=== PATIENT | male | born 1960 | race African-American/Black ===

== ENCOUNTER → 2016-11-03 | Outpatient (CLI) | payer OTHER ==
[~2016-11-03] VITALS: Ht 185.4 cm; Wt 133.8 kg
[~2016-11-03] MED LIST: B COMPLETE1 EAC1 PO; BP MED; CENTRUM SILVER1 EAC2 PO; COZAAR 25 MG TA25 M1 PO; GABAPENTIN 100100 MG PO; INDAPAMIDE2.5 MG PO; NORCO 10-325 T1 EACH PO; NORVASC10 MG PO; OMEPRAZOLE 20 M20 M1 PO; PERCOCET PO; ZOFRAN ODT4 MG DISSOLVE
--- NOTE | ~2016-11-03 | S ---
[facility] [place] [address] SURGICAL PATH RPT PROCEDURE Name: SP LEW Room #: REG CL M..#: [id number] Admission: 11/03/16 Date of : 58 Discharge: Report #: [id number] Path Case #: [id number] PATHOLOGY REPORT COLLECTION DATE: 11/03/2016 RECEIVED DATE: 11/03/2016 SUBMITTING PHYS: Dr. Rodrigo Casanova OTHER PHYS: SONJA Casiano SPECIMEN(S) RECEIVED: A.Polyp hepatic flexure B.Polyp prox ascending C.Polyp 70 cm D.Rectal polyp * * * * * * * * * * * * FINAL DIAGNOSIS: A. Polyp, hepatic flexure polyp, endoscopic biopsy: - Tubular adenoma. - Negative for high grade dysplasia. B. Polyp, proximal ascending, endoscopic biopsy: - Tubular adenoma. - Negative for high grade dysplasia. C. Polyp, 70 cm polyp, endoscopic biopsy: - Tubular adenoma admixed with hyperplastic changes. - Negative for high grade dysplasia. D. Polyp, rectal polyp, endoscopic biopsy: - Hyperplastic polyp. - Negative for dysplasia. (IUV:csd; d/t: 11/04/2016) PATHOLOGIST: Marya Campoverde M.D. REPORT ELECTRONICALLY SIGNED BY: Marya Campoverde M.D. DATE/TIME: 11/04/2016 14:32 * * * * * * * * * * * * GROSS PATHOLOGY: A. Received in formalin labeled "Sp Lew, hepatic flexure polyp," is a segment of barraaz soft tissue measuring 0.4 cm in maximum dimension. The specimen is submitted entirely in cassette A1. B. Received in formalin labeled "Sp Lew, polyp proximal ascending," is a segment of barraza soft tissue measuring 1.1 cm in maximum dimension. The specimen is submitted entirely in cassette B1. C. Received in formalin labeled "Sp Lew, 70 cm polyp," is a segment of barraza soft tissue measuring 0.5 cm in maximum dimension. The specimen is submitted entirely in cassette C1. [address] [address] SURGICAL PATH RPT PROCEDURE Name: SP LEW Room #: REG [facility].#: [id number] Admission: 11/03/16 Date of : 58 Discharge: Report #: [id number] Path Case #: [id number] D. Received in formalin labeled "Sp Lew, rectal polyp," is a segment of barraza soft tissue measuring 0.7 cm in maximum dimension. The specimen is submitted entirely in cassette D1. (CAA; 11/03/2016) CLINICAL HISTORY: Screening, history of polyps, colon polyps, diverticulosis INITIAL CPT CODE(S): A; 38631 B; 61914 C; 06632 D; 38661 Professional services performed by [facility] at [address] , [place] [address] Technical services performed by [facility] at [address] [place] [address], [address], [place] [address]. [facility] [address] [place], [place] [id number] PHONE: [phone] DIRECTOR: Wilber Horowitz M.D. * * * END OF REPORT * * *
--- NOTE | ~2016-11-03 | P ---
[facility] [place] [address] PROCEDURE REPORT Name: CLEMENCIA VASQUEZ Room #: REG [facility]#: [id number] Admission: 11/03/16 Attend Phys: Rodrigo Casanova MD Discharge: Date of : 58 Report #: [id number] THIS REPORT FOR: //name// CC: Rodrigo Lund DO BRIEF HISTORY: The patient is a 56-year-old male with history of colon polyps for surveillance exam. PREOPERATIVE DIAGNOSIS: History of colon polyps. POSTOPERATIVE DIAGNOSES: 1. Multiple colon polyps. 2. Moderate diverticulosis coli. MEDICATIONS: Deep sedation with propofol per anesthesia. SPECIMENS: 1. Polyp, hepatic flexure. 2. Polyp, proximal ascending colon. 3. Polyp at 70 cm. 4. Rectal polyp. ESTIMATED BLOOD LOSS: 3 mL. PROCEDURE: Colonoscopy to cecum and terminal ileum with snare polypectomy and biopsy. FINDINGS: Prior to propofol sedation, procedure of colonoscopy discussed with the patient as well as potential risks and its complications. He indicates he understands and desires to proceed. DESCRIPTION OF PROCEDURE: With the patient in the left lateral decubitus position, digital examination was completed, which revealed no abnormalities. Subsequently, the [employer] video colonoscope was introduced into the rectum and advanced under direct vision to the cecum. Done with minimal difficulty. The cecum was identified by the ileocecal valve and the appendiceal orifice. I was able to visualize the distal segment of the terminal ileum, which was inspected and noted to be unremarkable. At that point, the scope was withdrawn and careful circumferential views obtained, including retroflexing the scope in the ascending colon. Upon slow withdrawal of the scope, the prep was noted to be excellent. The mucosa was within normal limits, normal vascular pattern and normal light reflex. In the proximal ascending colon, a 6-mm sessile polyp was seen and removed by cold snare polypectomy. Upon withdrawal of the scope, an occasional diverticulum was seen in the proximal colon. In the hepatic flexure, a 5-mm sessile polyp was seen and removed by cold snare polypectomy and [facility] [address] [place] [address] PROCEDURE REPORT Name: CLEMENCIA VASQUEZ Room #: REG [facility]#: [id number] Admission: 11/03/16 Attend Phys: Rodrigo Casanova MD Discharge: Date of : 58 Report #: [id number] recovered. No additional abnormalities were noted until left colon was reached and at 70 cm, a diminutive polyp was seen and removed by biopsy. He was noted to have moderately severe diverticular disease of the distal descending colon and the sigmoid colon, without endoscopic evidence of diverticulitis. Scope was withdrawn in the rectum. Upon retroflexion, no abnormalities were seen. Scope was withdrawn. The patient tolerated the procedure well. CONDITION OF THE PATIENT UPON DISCHARGE: Following the procedure, the patient drowsy, aroused, conversant and will be discharged to home when fully ambulatory. INSTRUCTIONS TO THE PATIENT AND FAMILY AT THE TIME OF DISCHARGE: The patient with finding of 4 polyps today. We will follow up on the path and make a surveillance recommendation. If 3 or more polyps are adenomatous, he will return in 3 years. If only 1-2 adenomatous, then 5 years will be indicated. If none are adenomas, then he should return in 10 years. He will return under the care of Dr. Rajendra Lund and return to see me as needed. Last colonoscopy was about 4 years ago. Withdrawal time from the cecum including polypectomies was 21 minutes. <ELECTRONICALLY SIGNED> By: Rodrigo Casanova MD 11/04/16 1224 1033 1220 Rodrigo Casanova MD /nt
== END ==
LOC: GI 08:11
DX: Z12.11 Encounter for screening for malignant neoplasm of colon (principal); D12.2 Benign neoplasm of ascending colon; D12.3 Benign neoplasm of transverse colon; D12.4 Benign neoplasm of descending colon; K57.30 Diverticulosis of large intestine without perforation or abscess without bleeding; I10 Essential (primary) hypertension; Z87.891 Personal history of nicotine dependence; K62.1 Rectal polyp
CPT/HCPCS: 62110; 62900

== ENCOUNTER → 2019-10-14 | Outpatient (CLI) | payer OTHER ==
[~2019-10-14] VITALS: Ht 185.4 cm; Wt 142.9 kg
[~2019-10-14] MED LIST changes: +AMITRIPTYLINE H10 M3 PO; +BENICAR40 MG PO; +CIPROFLOXACIN500 M1 PO; +FLAGYL500 MG PO; +OXYCODONE HCL 55 MG PO
--- NOTE | 2019-10-17 11:17 | P ---
[facility] [place] [address] PROCEDURE REPORT Name: CLEMENCIA VASQUEZ Room #: REG [facility]#: [id number] Admission: 10/14/19 Attend Phys: Rodrigo Casanova MD Discharge: Date of : 58 Report #: [id number] THIS REPORT FOR: cc: Rajendra Lund Louis D. DO Thesing, John A. MD ~ CC: Rodrigo Lund DO DATE OF SERVICE: 10/14/2019 OUTPATIENT COLONOSCOPY REPORT BRIEF HISTORY: The patient is a 59-year-old male with a history of colon polyps. Last colon exam was about 3 years ago, he had 3 adenomas removed at that time. PREOPERATIVE DIAGNOSIS: History of colon polyps. POSTOPERATIVE DIAGNOSES: 1. Colon polyp. 2. Moderate sigmoid diverticulosis coli. MEDICATIONS: Deep sedation with propofol per anesthesia. SPECIMEN: Polyp from mid ascending colon. ESTIMATED BLOOD LOSS: 3 mL. PROCEDURE: Colonoscopy to cecum and terminal ileum with snare polypectomy. FINDINGS: Prior to propofol sedation, procedure of colonoscopy discussed with the patient as well as potential risks and its complications. He indicates he understands and desires to proceed. DESCRIPTION OF PROCEDURE: With the patient in left lateral decubitus position, digital examination was completed, which revealed no abnormalities. Subsequently, the [employer] video colonoscope was introduced into the rectum, advanced under direct vision to the cecum. Done with minimal difficulty. The cecum was identified by the ileocecal valve and the appendiceal orifice. I was able to briefly visualize the distal segment of terminal ileum and see a villous pattern. No abnormalities were noted. At that point, the scope was slowly withdrawn and careful circumferential views obtained. Upon slow withdrawal of the scope, the prep was good. The mucosa within normal limits, normal vascular pattern, normal light reflex. As we withdrew the scope, he was found to have a [facility] [address] [place] [address] PROCEDURE REPORT Name: CLEMENCIA VASQUEZ Room #: REG [facility] [place].#: [id number] Admission: 10/14/19 Attend Phys: Rodrigo Casanova MD Discharge: Date of : 58 Report #: [id number] 5 mm sessile polyp in the mid ascending colon that was removed by cold snare polypectomy. The scope was further withdrawn and no additional neoplastic lesions were seen. He was noted to have a few scattered diverticula in the proximal colon. There was moderately severe diverticular disease in the sigmoid colon without endoscopic evidence of diverticulitis. The scope was withdrawn in the rectum and no abnormalities were seen. Upon retroflexion, no abnormalities were seen. Scope was withdrawn. The patient tolerated the procedure well. CONDITION OF THE PATIENT UPON DISCHARGE: Following procedure, the patient drowsy, aroused, conversant and will be discharged home when fully ambulatory. INSTRUCTIONS TO THE PATIENT AND FAMILY AT THE TIME OF DISCHARGE: One polyp identified and removed as described above. We will follow up on the path. We will have him return in 5 years for a followup colonoscopy. He will otherwise return to the care of Dr. Rajendra Lund. Return to see me as needed. <ELECTRONICALLY SIGNED> By: Rodirgo Casanova MD 10/17/19 1117 1032 1245 Rodrigo Casanova MD /nt
--- NOTE | 2019-10-17 17:09 | PATH ---
[facility] [address] [place] [address] PATHOLOGY RPT PROCEDURE Name: SP LEW Room #: REG [facility] M.R.#: [id number] Admission: 10/14/19 Date of : 58 Discharge: Report #: [id number] Path Case #: [id number] [facility] Accession Number: [id number] . 01 Material submitted: . colon - POLYP AT MID-ASCENDING COLON. Modifiers: mid, ascending . 01 Clinical history: . Screening, colon polyp, diverticulosis. . 02 Diagnosis: Polyp, at mid ascending colon, endoscopic biopsy: - Tubular adenoma. - Negative for high-grade dysplasia. (IUV:pit 10/17/2019) QTP 10/17/2019 1213 Local . 02 Electronically signed: . Marya Campoverde MD, Pathologist NPI- [id number] . 01 Gross description: . Received in formalin labeled "Sp Lew, polyp at mid ascending colon" is a 1.5 x 0.5 x 0.3 cm fragment of barraza-brown mucosa. The margin is inked and the specimen is trisected. The specimen is submitted entirely in A1. ([facility] [place] 10/16/2019) [facility] 10/16/2019 1051 Local . 02 Pathologist provided ICD-10: D12.2 . 02 CPT . 782699 Specimen Comment: A courtesy copy of this report has been sent to [phone], [phone] Specimen Comment: [phone] Specimen Comment: Report sent to / DR BECERRA Performed at: [address], [place] [id number] MD Zaire Corey MD Phone: [phone] Performed at: [address] [id number] MD Marya Campoverde MD Phone: [phone]
== END | disposition home or self-care (01) ==
LOC: GI 07:53
DX: Z12.11 Encounter for screening for malignant neoplasm of colon (principal); Z86.010 Personal history of colon polyps; D12.2 Benign neoplasm of ascending colon; K57.30 Diverticulosis of large intestine without perforation or abscess without bleeding; I10 Essential (primary) hypertension; K21.9 Gastro-esophageal reflux disease without esophagitis; G47.30 Sleep apnea, unspecified; Z98.890 Other specified postprocedural states; Z79.899 Other long term (current) drug therapy; Z90.49 Acquired absence of other specified parts of digestive tract; Z87.891 Personal history of nicotine dependence
CPT/HCPCS: 62110; 62900

== ENCOUNTER → 2020-02-06 | Outpatient (CLI) | payer OTHER | LOC: SJCVC 13:59 | PROVIDERS: ATTEND Internal Medicine Cardiovascular Disease | DX: R06.00 Dyspnea, unspecified (principal); I10 Essential (primary) hypertension; R60.9 Edema, unspecified; K21.9 Gastro-esophageal reflux disease without esophagitis ==

== ENCOUNTER → 2020-02-13 | Outpatient (CLI) | payer OTHER | LOC: SJCVCIMAG 08:23 | DX: R06.00 Dyspnea, unspecified (principal); R60.9 Edema, unspecified; I10 Essential (primary) hypertension; K21.9 Gastro-esophageal reflux disease without esophagitis; Z72.0 Tobacco use; Z79.899 Other long term (current) drug therapy ==

== ENCOUNTER → 2020-02-13 | Outpatient (CLI) | payer OTHER | LOC: CAT 10:19 | PROVIDERS: ATTEND Internal Medicine Cardiovascular Disease | DX: Z13.6 Encounter for screening for cardiovascular disorders (principal); I25.10 Atherosclerotic heart disease of native coronary artery without angina pectoris; E78.00 Pure hypercholesterolemia, unspecified ==

== ENCOUNTER → 2020-02-15 | Outpatient (CLI) | payer OTHER | LOC: SJCVCIMAG 07:07 | PROVIDERS: ATTEND Internal Medicine Cardiovascular Disease | DX: R00.0 Tachycardia, unspecified (principal); I10 Essential (primary) hypertension; R06.00 Dyspnea, unspecified; E66.9 Obesity, unspecified; K21.9 Gastro-esophageal reflux disease without esophagitis; Z72.0 Tobacco use; Z79.899 Other long term (current) drug therapy ==

== ENCOUNTER → 2020-02-24 | Outpatient (CLI) | payer OTHER | LOC: SJCVC 09:30 | PROVIDERS: ATTEND Internal Medicine Cardiovascular Disease | DX: I49.9 Cardiac arrhythmia, unspecified (principal); I10 Essential (primary) hypertension; K21.9 Gastro-esophageal reflux disease without esophagitis; Z79.899 Other long term (current) drug therapy ==

== ENCOUNTER → 2021-03-06 | Outpatient (CLI) | payer OTHER | LOC: SJCVC 13:20 | PROVIDERS: ATTEND Internal Medicine Cardiovascular Disease | DX: I49.9 Cardiac arrhythmia, unspecified (principal); I10 Essential (primary) hypertension; R06.00 Dyspnea, unspecified; R60.9 Edema, unspecified; K21.9 Gastro-esophageal reflux disease without esophagitis; E66.9 Obesity, unspecified; G89.29 Other chronic pain; M54.5 Low back pain; G47.30 Sleep apnea, unspecified; Z72.0 Tobacco use; Z79.899 Other long term (current) drug therapy ==